=== PATIENT | female | born 1980 | race Hispanic/Latino ===

== ENCOUNTER 2018-07-08 07:57 | Outpatient (CLI) | payer OTHER ==
--- NOTE | 2018-07-08 09:02 | CT ---
CT Abdomen Pelvis W Con HISTORY: Left lower quadrant abdominal pain COMPARISON: None. FINDINGS: The lung bases are clear. No calcified gallstones are seen. The spleen, pancreas and adrenal glands a re normal. No free air, free fluid or lymphadenopathy is seen in the abdomen or pelvis. There is a small peripheral 5 mm subcapsular low-density lesion in the right lobe of the liver, too s mall to characterize, likely cyst. There are well-circumscribed low density lesions in the kidney measuring 12 mm on the right and 19 mm and 18 mm on the left likely cysts. The small bowel loops are not abnormally dilated. No abnormally dilated fluid-filled appendix is seen . No pericolonic inflammatory changes are seen. Uterus and ovaries are present a 14 mm low-density lesion in the left ovary with enhancing crenulated margins is consistent with a corpus luteal cyst. No osteolytic or osteoblastic lesions is seen. IMPRESSION: 1. No evidence of acute process. 2. Probable cysts in the liver and kidneys. Confirmation with ultrasound is recommended 3. Corpus luteal cyst in the left ovary
[2018-07-08] MEDS ORDERED: Iopamidol 370 76% 100 ML VIAL ONE (10:32)
== END 2018-07-08 07:58 | disposition home or self-care (01) ==
LOC: BICCT 07:57
PROVIDERS: ATTEND Physician Assistant Medical
DX: R10.13 Epigastric pain (principal); R10.30 Lower abdominal pain, unspecified; R14.2 Eructation; R14.0 Abdominal distension (gaseous); N83.12 Corpus luteum cyst of left ovary
CPT/HCPCS: 74177; Q9967

== ENCOUNTER 2018-07-24 09:35 | Outpatient (CLI) | payer OTHER ==
--- NOTE | 2018-07-24 10:40 | ULT ---
ULTRASOUND ABDOMEN COMPLETE: DATE: 07/24/2018 HISTORY: 38-year-old female with generalized abdominal pain FINDINGS: Liver:Normal sonographic appearance. The tiny subcapsular hypodense lesion found on CT is too small t o visualize on the ultrasound. Gallbladder:Normal mural thickness. No pericholecystic fluid. No sludge. No definite gallstone. Common duct:2 mm Spleen:No splenomegaly. Pancreas:No significant abnormality Kidneys:Diffusely echogenic bilateral renal parenchyma. No hydronephrosis. 1.5 cm cyst left renal low er pole. 1 cm cyst right renal lower pole. Abdominal aorta:No aneurysm Inferior vena cava:Unremarkable where visualized IMPRESSION: 1. Evidence for medullary sponge kidney. 2. At least 2 small renal cysts, one on each side. 3. No other significant abnormality.
== END 2018-07-24 09:36 | disposition home or self-care (01) ==
LOC: ULT 09:35
PROVIDERS: ATTEND Family Medicine
DX: R10.84 Generalized abdominal pain (principal); N28.1 Cyst of kidney, acquired
CPT/HCPCS: 76700; 82274; 83630; 87045; 87046; 87177; 87338; 87449; 87899

== ENCOUNTER 2020-09-15 12:24 | Outpatient (CLI) | payer BC | END 2020-09-15 12:25 | disposition home or self-care (01) | LOC: BICMAMMO 12:24 | PROVIDERS: ATTEND Nurse Practitioner Family | DX: N63.10 Unspecified lump in the right breast, unspecified quadrant (principal) | CPT/HCPCS: 77063; 77066; 77067; G0279 ==

== ENCOUNTER 2025-03-15 12:13 | Outpatient (CLI) | payer BC | END 2025-03-15 12:14 | disposition home or self-care (01) | LOC: ULT 12:13 | PROVIDERS: ATTEND Physician Assistant Medical | DX: R10.13 Epigastric pain (principal); R11.0 Nausea; K80.20 Calculus of gallbladder without cholecystitis without obstruction | CPT/HCPCS: 76705 ==